=== PATIENT | male | born 1940 | race Caucasian/White ===

== ENCOUNTER 2022-12-20 09:37 | Day surgery (SDC) | payer MEDICARE, BC ==
[~2022-12-20 09:37] MED LIST: Midazolam 1 MG/ML 2 ML SDV ONE; Propofol 200 MG/20 ML SDV ONE
[2022-12-20] MEDS ORDERED: Lactated Ringers 1,000 ML IV SCH (09:45)
[2022-12-20] MEDS ORDERED: Sodium Chloride 0.9% 10 ML Syringe FLUSH PRN (09:45)
[2022-12-20] MEDS ORDERED: Lidocaine 1% 5 ML VIAL ONE (11:00)
[2022-12-20 13:30] VITALS: BP 132/88; PULSE 82
== END 2022-12-20 12:12 | disposition home or self-care (01) ==
LOC: LL.SDS 09:37
PROVIDERS: ATTEND Surgery
DX: K44.9 Diaphragmatic hernia without obstruction or gangrene (principal); K21.9 Gastro-esophageal reflux disease without esophagitis; N40.0 Benign prostatic hyperplasia without lower urinary tract symptoms; J45.909 Unspecified asthma, uncomplicated; E78.2 Mixed hyperlipidemia; Z87.19 Personal history of other diseases of the digestive system; Z79.899 Other long term (current) drug therapy; Z88.0 Allergy status to penicillin; Z98.890 Other specified postprocedural states; Z87.891 Personal history of nicotine dependence
CPT/HCPCS: J2250; J2704; J7120

== ENCOUNTER 2025-02-18 08:56 | Day surgery (SDC) | payer MEDICARE, BC ==
[~2025-02-18 08:56] MED LIST changes: +Sodium Chloride 0.9% 10 ML Syringe FLUSH PRN
[2025-02-18] MEDS: Lactated Ringers 1,000 ML IV SCH (09:30)
[2025-02-18] MEDS ORDERED: Propofol 200 MG/20 ML SDV IV ONE (10:02)
[2025-02-18 11:03] VITALS: BP 114/61; PULSE 57
== END 2025-02-18 11:27 | disposition home or self-care (01) ==
LOC: LL.SDS 08:56
PROVIDERS: ATTEND Surgery
DX: D12.2 Benign neoplasm of ascending colon (principal); I10 Essential (primary) hypertension; K21.9 Gastro-esophageal reflux disease without esophagitis; E78.5 Hyperlipidemia, unspecified; J45.909 Unspecified asthma, uncomplicated; D64.9 Anemia, unspecified; Z88.0 Allergy status to penicillin; Z88.6 Allergy status to analgesic agent; Z88.8 Allergy status to other drugs, medicaments and biological substances; Z79.899 Other long term (current) drug therapy
CPT/HCPCS: 00811; 88305; 99100; J2250; J2704; J7120